=== PATIENT | male | born 1940 | race Caucasian/White ===

== ENCOUNTER 2019-06-29 15:30 | Inpatient (IN) ==
[2019-06-29] MEDS ORDERED: ALBUTEROL/IPRATROPIUM 3 ML NEB RESP TX STA (16:07)
[2019-06-29 16:25] LABS: Basophils % 0.2 % (0.0-0.8); Eosinophils % 0.1 % (0.00-10.9); Hematocrit 38.4 VOL% (42.0-52.0); Hemoglobin 13.2 GM/DL (14.0-18.0); Immature Granulocytes % 0.9 %; Immature Granulocytes Absolute 0.18 #; Lymphocytes # 0.3 10*3/uL (1.4-4.0); Lymphocytes % 1.5 % (21.2-54.2); Mean Corpuscular HGB Conc 34.4 GM/DL (32-36); Mean Corpuscular Volume 101.1 FL (87-102); Mean Platelet Volume 8.5 FL (9.6-12.0); Monocytes % 6.1 % (1.7-12.7); Neutrophils % 91.2 % (38.7-73.9); Platelet Count 173 T/CUMM (130-400); Red Cell Distribution Width 12.7 % (9.3-17.3); White Blood Count 19.7 T/CUMM (4-12)
[2019-06-29 17:04] LABS: Albumin 3.8 G/DL (3.4-5.0); Bilirubin,Total 1.1 MG/DL (0.2-1.0); Calcium 9.1 MG/DL (8.5-10.1); Osmolality,Calculated 256.5 MOS/KG (273-304)
[2019-06-29] MEDS ORDERED: SODIUM CHLORIDE 0.9% 1,000 ML IV STA (17:17)
[2019-06-29 17:21] LABS: Band Neutrophils 3 % (0-10); Lymphocytes 2 % (20-55); Segmented Neutrophils 89 % (50-85); Total Cells Counted 100
[2019-06-29 17:22] LABS: Macrocytosis Slight; Platelet Estimate Adequate
[2019-06-29] MEDS ORDERED: ACETAMINOPHEN 325 MG TABLET PO PRN (19:28)
[2019-06-29] MEDS ORDERED: ONDANSETRON 4 MG/2 ML VIAL IV PRN (19:28)
[2019-06-29] MEDS ORDERED: DEXTROSE 50% 25 GM/50 ML VIAL IV PRN (19:28)
[2019-06-29] MEDS ORDERED: GLUCAGON 1 MG VIAL IM PRN (19:28)
[2019-06-29] MEDS: APIXABAN 2.5 MG TABLET PO SCH (22:46)
[2019-06-29] MEDS: MONTELUKAST 10 MG TABLET PO SCH (22:46)
[2019-06-29] MEDS: methylPREDNISolone SOD SUC 40 MG/1 ML VIAL IV SCH (22:47)
[2019-06-29] MEDS: SODIUM CHLORIDE 0.9% 1,000 ML IV SCH (22:47)
[2019-06-29] MEDS: LEVOFLOXACIN INJ 750 MG in PREMIX 1 EACH IV SCH (22:48)
[2019-06-29] MEDS: FLUTICASONE/SALMETEROL 500-50 DISKUS 14 DOSE INH SCH (22:54)
[2019-06-29] MEDS: INSULIN LISPRO 100 UNIT/ML SUBCUT SCH (23:27)
[2019-06-29] MEDS: LORazepam 2 MG/1 ML VIAL IV PRN (23:28)
[2019-06-30] MEDS: ALBUTEROL/IPRATROPIUM 3 ML NEB RESP TX SCH ×3 (00:23→20:29)
[2019-06-30] MEDS: LORazepam 2 MG/1 ML VIAL IV PRN (04:01)
[2019-06-30 04:55] LABS: Basophils % 0.1 % (0.0-0.8); Hematocrit 32.3 VOL% (42.0-52.0); Hemoglobin 11.6 GM/DL (14.0-18.0); Immature Granulocytes % 0.7 %; Immature Granulocytes Absolute 0.08 #; Lymphocytes # 0.1 10*3/uL (1.4-4.0); Lymphocytes % 1.2 % (21.2-54.2); Mean Corpuscular HGB Conc 35.9 GM/DL (32-36); Mean Corpuscular Volume 97.9 FL (87-102); Mean Platelet Volume 8.8 FL (9.6-12.0); Monocytes % 3.5 % (1.7-12.7); Neutrophils % 94.5 % (38.7-73.9); Platelet Count 147 T/CUMM (130-400); Red Cell Distribution Width 12.6 % (9.3-17.3); White Blood Count 10.7 T/CUMM (4-12)
[2019-06-30 05:18] LABS: Calcium 8.7 MG/DL (8.5-10.1); Osmolality,Calculated 265.7 MOS/KG (273-304)
[2019-06-30 05:22] LABS: Hypochromasia 1+; Lymphocytes 4 % (20-55); Platelet Estimate Normal; Segmented Neutrophils 94 % (50-85); Total Cells Counted 100
[2019-06-30 05:34] LABS: Folate > 24.0 NG/ML (5.4-24.0); Vitamin B12 1226 PG/ML (211-911)
[2019-06-30] MEDS: methylPREDNISolone SOD SUC 40 MG/1 ML VIAL IV SCH ×3 (06:48→20:10)
[2019-06-30] MEDS: SODIUM CHLORIDE 0.9% 1,000 ML IV SCH ×2 (07:35→15:42)
[2019-06-30] MEDS ORDERED: THIAMINE 200 MG/2 ML VIAL IV SCH (09:00)
[2019-06-30] MEDS: APIXABAN 2.5 MG TABLET PO SCH ×2 (09:14→20:08)
[2019-06-30] MEDS: FOLIC ACID 1 MG TABLET PO SCH (09:14)
[2019-06-30] MEDS: MULTIVITAMIN (CENTRUM) TABLET PO SCH (09:14)
[2019-06-30] MEDS: TAMSULOSIN 0.4 MG CAPSULE PO SCH (09:14)
[2019-06-30] MEDS: DILTIAZEM CD 120 MG CAPSULE PO SCH (09:14)
[2019-06-30] MEDS: FUROSEMIDE 40 MG TABLET PO SCH (09:15)
[2019-06-30] MEDS: PANTOPRAZOLE 40 MG TABLET PO SCH (09:15)
[2019-06-30] MEDS: INSULIN LISPRO 100 UNIT/ML SUBCUT SCH ×4 (09:16→20:09)
[2019-06-30] MEDS: NICOTINE 21 MG/24 HR PATCH TRANSDERM SCH (09:20)
[2019-06-30] MEDS ORDERED: SODIUM PHOSPHATE ENEMA 133 ML BOTTLE RECTAL ONE (09:53)
[2019-06-30] MEDS ORDERED: MAGNESIUM SULF RIDER 4 GM in PREMIX 1 EACH IV PRN (09:53)
[2019-06-30] MEDS ORDERED: MAGNESIUM SULF RIDER 2 GM in PREMIX 1 EACH IV PRN (09:53)
[2019-06-30] MEDS ORDERED: ALBUTEROL/IPRATROPIUM 3 ML NEB RESP TX PRN (09:55)
[2019-06-30] MEDS: FLUTICASONE/SALMETEROL 500-50 DISKUS 14 DOSE INH SCH ×2 (10:16→20:11)
[2019-06-30 10:49] LABS: Apearance,Urine CLEAR (Clear); Bilirubin,Urine Negative (Negative); Blood, Urine Moderate mg/dL (Negative); Glucose,Urine (UA) 50 mg/dL (Negative); Ketones,Urine 5 mg/dL (Negative); Nitrite,Urine Negative (Negative); Protein,Urine Negative; RBC,Urine 10 /HPF (0-4); Squamous Epithelial Cell,Urine Occasional /HPF (0-10); Urine Color Yellow (Yellow); Urine Specific Gravity 1.019 (1.001-1.035); WBC,Urine <1 /HPF (0-6)
[2019-06-30] MEDS ORDERED: MAGNESIUM CITRATE 300 ML BOTTLE PO ONE (12:02)
[2019-06-30] MEDS: DOCUSATE/SENNA 50-8.6 MG TABLET PO SCH ×2 (12:16→20:08)
[2019-06-30] MEDS ORDERED: DIGOXIN 0.25 MG TABLET PO SCH (13:00)
[2019-06-30] MEDS: LEVOFLOXACIN INJ 750 MG in PREMIX 1 EACH IV SCH (20:08)
[2019-06-30] MEDS: MONTELUKAST 10 MG TABLET PO SCH (20:09)
[2019-06-30] MEDS: LACTULOSE 20 GM/30 ML UDCUP PO SCH (20:13)
[2019-07-01] MEDS: LORazepam 2 MG/1 ML VIAL IV PRN (02:06)
[2019-07-01 05:33] LABS: Basophils % 0.2 % (0.0-0.8); Eosinophils % 0.2 % (0.00-10.9); Immature Granulocytes % 0.7 %; Immature Granulocytes Absolute 0.08 #; Lymphocytes # 0.8 10*3/uL (1.4-4.0); Lymphocytes % 7.1 % (21.2-54.2); Mean Corpuscular HGB Conc 34.4 GM/DL (32-36); Mean Corpuscular Volume 99.7 FL (87-102); Mean Platelet Volume 9.5 FL (9.6-12.0); Monocytes % 9.6 % (1.7-12.7); Neutrophils % 82.2 % (38.7-73.9); Platelet Count 149 T/CUMM (130-400); Red Blood Count 3.21 MC/CUMM (3.8-5.5); Red Cell Distribution Width 12.6 % (9.3-17.3); White Blood Count 11.2 T/CUMM (4-12)
[2019-07-01] MEDS: methylPREDNISolone SOD SUC 40 MG/1 ML VIAL IV SCH (05:55)
[2019-07-01 06:04] LABS: Albumin 2.8 G/DL (3.4-5.0); Bilirubin,Total 1.1 MG/DL (0.2-1.0); Calcium 8.4 MG/DL (8.5-10.1); Osmolality,Calculated 271.2 MOS/KG (273-304); Total Protein 5.5 G/DL (6.4-8.3)
[2019-07-01] MEDS: ALBUTEROL/IPRATROPIUM 3 ML NEB RESP TX SCH (08:10)
[2019-07-01] MEDS ORDERED: THIAMINE 100 MG TABLET PO SCH (09:00)
[2019-07-01] MEDS ORDERED: INFLUENZA VIRUS VACCINE 0.5 ML SYRINGE IM ONE (11:03)
[2019-07-01] MEDS: FOLIC ACID 1 MG TABLET PO SCH (11:49)
[2019-07-01] MEDS: MULTIVITAMIN (CENTRUM) TABLET PO SCH (11:49)
[2019-07-01] MEDS: DOCUSATE/SENNA 50-8.6 MG TABLET PO SCH (11:49)
[2019-07-01] MEDS: FUROSEMIDE 40 MG TABLET PO SCH (11:50)
[2019-07-01] MEDS: DILTIAZEM CD 120 MG CAPSULE PO SCH (11:50)
[2019-07-01] MEDS: APIXABAN 2.5 MG TABLET PO SCH (11:50)
[2019-07-01] MEDS: TAMSULOSIN 0.4 MG CAPSULE PO SCH (11:50)
[2019-07-01] MEDS: NICOTINE 21 MG/24 HR PATCH TRANSDERM SCH (11:51)
[2019-07-01] MEDS: LACTULOSE 20 GM/30 ML UDCUP PO SCH (11:51)
[2019-07-01] MEDS: INSULIN LISPRO 100 UNIT/ML SUBCUT SCH (11:52)
[2019-07-01] MEDS: FLUTICASONE/SALMETEROL 500-50 DISKUS 14 DOSE INH SCH (11:52)
[2019-07-01] MEDS: PANTOPRAZOLE 40 MG TABLET PO SCH (11:53)
[2019-07-01 11:57] VITALS: BP 113/60
== END 2019-07-01 13:15 | disposition home or self-care (01) | DRG 392 ==
LOC: N.ED 15:30 → N.EDINP 19:28 → N.5E 20:22
PROVIDERS: ADMIT Family Medicine; ATTEND Family Medicine

== ENCOUNTER 2019-09-30 10:20 | Inpatient (IN) ==
[2019-09-30] MEDS ORDERED: ALUMINUM/MAGNES/SIMETH MAX STR 30 ML UDCUP PO PRN (10:26)
[2019-09-30] MEDS ORDERED: diphenhydrAMINE CAP 25 MG CAPSULE PO PRN (10:26)
[2019-09-30] MEDS ORDERED: DOCUSATE SODIUM 100 MG CAPSULE PO PRN (10:26)
[2019-09-30] MEDS ORDERED: ZALEPLON 5 MG CAPSULE PO PRN (10:26)
[2019-09-30] MEDS ORDERED: ONDANSETRON 4 MG/2 ML VIAL IV PRN (10:26)
[2019-09-30] MEDS ORDERED: ACETAMINOPHEN 325 MG TABLET PO PRN (10:26)
[2019-09-30 14:41] LABS: Basophils % 0.2 % (0.0-0.8); Hematocrit 36.8 VOL% (42.0-52.0); Immature Granulocytes % 0.8 %; Immature Granulocytes Absolute 0.09 #; Lymphocytes # 0.4 10*3/uL (1.4-4.0); Lymphocytes % 3.1 % (21.2-54.2); Mean Corpuscular HGB Conc 32.6 GM/DL (32-36); Mean Corpuscular Volume 97.1 FL (87-102); Mean Platelet Volume 9.2 FL (9.6-12.0); Monocytes % 8.2 % (1.7-12.7); Neutrophils % 87.7 % (38.7-73.9); Platelet Count 171 T/CUMM (130-400); Red Blood Count 3.79 MC/CUMM (3.8-5.5); Red Cell Distribution Width 14.4 % (9.3-17.3); White Blood Count 11.6 T/CUMM (4-12)
[2019-09-30 15:05] LABS: Calcium 8.8 MG/DL (8.5-10.1); Osmolality,Calculated 273.5 MOS/KG (273-304)
[2019-09-30 15:17] LABS: Lymphocytes 2 % (20-55); Ovalocytes Few; Platelet Estimate Adequate; Segmented Neutrophils 90 % (50-85); Total Cells Counted 100
[2019-09-30 15:18] LABS: Anisocytosis Slight
[2019-09-30] MEDS ORDERED: MAGNESIUM SULF RIDER 2 GM in PREMIX 1 EACH IV ONE (15:46)
[2019-09-30] MEDS: ceFAZolin 1,000 MG in SYRINGE 1 EACH IV SCH ×2 (16:38→22:22)
[2019-09-30 19:35] LABS: Apearance,Urine CLEAR (Clear); Bilirubin,Urine Negative (Negative); Blood, Urine Small mg/dL (Negative); Glucose,Urine (UA) >=500 mg/dL (Negative); Hyaline Casts,Urine 1 /LPF (0-3); Ketones,Urine Negative (Negative); Mucus,Urine Occasional /LPF (Occasional); Nitrite,Urine Negative (Negative); Protein,Urine 30 MG/DL; RBC,Urine 25 /HPF (0-4); Squamous Epithelial Cell,Urine Occasional /HPF (0-10); Urine Color Yellow (Yellow); Urine Urobilinogen < 2.0 EU/DL (0.2-1.0); WBC,Urine 1 /HPF (0-6)
[2019-09-30] MEDS: ALBUTEROL/IPRATROPIUM 3 ML NEB RESP TX SCH (19:39)
[2019-09-30] MEDS: POTASSIUM CHLORIDE 10 MEQ TABLET PO SCH (20:34)
[2019-09-30] MEDS: predniSONE 10 MG TABLET PO SCH (20:34)
[2019-09-30] MEDS: MONTELUKAST 10 MG TABLET PO SCH (20:35)
[2019-09-30] MEDS: FLUTICASONE PROPION SALMETEROL INH SCH (20:38)
[2019-10-01] MEDS: ALBUTEROL/IPRATROPIUM 3 ML NEB RESP TX SCH ×4 (00:17→20:01)
[2019-10-01] MEDS: ceFAZolin 1,000 MG in SYRINGE 1 EACH IV SCH ×4 (04:13→21:19)
[2019-10-01 04:49] LABS: Basophils % 0.1 % (0.0-0.8); Hemoglobin 10.6 GM/DL (14.0-18.0); Immature Granulocytes % 0.6 %; Immature Granulocytes Absolute 0.05 #; Lymphocytes # 0.4 10*3/uL (1.4-4.0); Lymphocytes % 4.6 % (21.2-54.2); Mean Corpuscular HGB Conc 32.1 GM/DL (32-36); Mean Corpuscular Volume 97.3 FL (87-102); Mean Platelet Volume 9.3 FL (9.6-12.0); Monocytes % 9.7 % (1.7-12.7); Platelet Count 157 T/CUMM (130-400); Red Blood Count 3.39 MC/CUMM (3.8-5.5); Red Cell Distribution Width 14.3 % (9.3-17.3); White Blood Count 8.8 T/CUMM (4-12)
[2019-10-01 05:31] LABS: Calcium 8.5 MG/DL (8.5-10.1); Osmolality,Calculated 271.2 MOS/KG (273-304); Risk Ratio 1.27; VLDL CHOLESTEROL 6.4 MG/DL
[2019-10-01 05:40] LABS: Anisocytosis 1+; Eosinophils 2 % (0-10); Lymphocytes 8 % (20-55); Segmented Neutrophils 82 % (50-85); Total Cells Counted 100
[2019-10-01 05:41] LABS: Platelet Estimate Adequate
[2019-10-01] MEDS ORDERED: LIDOCAINE 1% 20 ML VIAL ONE (06:17)
[2019-10-01] MEDS ORDERED: BUPIVACAINE MPF 0.25% 30 ML VIAL ONE (06:17)
[2019-10-01] MEDS ORDERED: LIDOCAINE 2% 5 ML VIAL ONE (09:20)
[2019-10-01] MEDS ORDERED: propofoL 200 MG/20 ML VIAL IV ONE (09:20)
[2019-10-01] MEDS ORDERED: PHENYLEPHRINE 1 MG/10 ML SYRINGE IV ONE (09:21)
[2019-10-01] MEDS ORDERED: MIDAZOLAM 2 MG/2 ML VIAL ONE (09:21)
[2019-10-01] MEDS: FUROSEMIDE 40 MG TABLET PO SCH (11:10)
[2019-10-01] MEDS: MULTIVITAMIN (CENTRUM) TABLET PO SCH (11:10)
[2019-10-01] MEDS: predniSONE 10 MG TABLET PO SCH ×2 (11:10→21:18)
[2019-10-01] MEDS: PANTOPRAZOLE 40 MG TABLET PO SCH (11:10)
[2019-10-01] MEDS: MAGNESIUM CHLORIDE 64 MG TABLET PO SCH (11:10)
[2019-10-01] MEDS: TAMSULOSIN 0.4 MG CAPSULE PO SCH (11:10)
[2019-10-01] MEDS: POTASSIUM CHLORIDE 10 MEQ TABLET PO SCH ×2 (11:10→21:18)
[2019-10-01] MEDS: DILTIAZEM CD 120 MG CAPSULE PO SCH (11:11)
[2019-10-01] MEDS: SPIRONOLACTONE 25 MG TABLET PO SCH (11:11)
[2019-10-01] MEDS: CHOLECALCIFEROL 400 UNIT TABLET PO SCH (11:11)
[2019-10-01] MEDS: FLUTICASONE PROPION SALMETEROL INH SCH ×2 (11:12→21:19)
[2019-10-01] MEDS: MONTELUKAST 10 MG TABLET PO SCH (21:18)
[2019-10-02] MEDS: ALBUTEROL/IPRATROPIUM 3 ML NEB RESP TX SCH ×4 (00:57→19:02)
[2019-10-02] MEDS: ceFAZolin 1,000 MG in SYRINGE 1 EACH IV SCH ×4 (04:26→23:06)
[2019-10-02 05:06] LABS: Basophils % 0.1 % (0.0-0.8); Eosinophils % 0.1 % (0.00-10.9); Hematocrit 32.1 VOL% (42.0-52.0); Hemoglobin 10.2 GM/DL (14.0-18.0); Immature Granulocytes % 0.5 %; Immature Granulocytes Absolute 0.04 #; Lymphocytes # 0.4 10*3/uL (1.4-4.0); Mean Corpuscular HGB Conc 31.8 GM/DL (32-36); Mean Corpuscular Volume 98.8 FL (87-102); Mean Platelet Volume 8.9 FL (9.6-12.0); Monocytes % 10.7 % (1.7-12.7); Neutrophils % 84.6 % (38.7-73.9); Platelet Count 137 T/CUMM (130-400); Red Blood Count 3.25 MC/CUMM (3.8-5.5); White Blood Count 8.7 T/CUMM (4-12)
[2019-10-02 05:37] LABS: Calcium 8.4 MG/DL (8.5-10.1); Osmolality,Calculated 273.2 MOS/KG (273-304)
[2019-10-02 06:06] LABS: Band Neutrophils 3 % (0-10); Lymphocytes 4 % (20-55); Segmented Neutrophils 84 % (50-85); Total Cells Counted 100
[2019-10-02 06:07] LABS: Anisocytosis 1+; Platelet Estimate Normal
[2019-10-02] MEDS: PANTOPRAZOLE 40 MG TABLET PO SCH (10:12)
[2019-10-02] MEDS: CHOLECALCIFEROL 400 UNIT TABLET PO SCH (10:13)
[2019-10-02] MEDS: POTASSIUM CHLORIDE 10 MEQ TABLET PO SCH ×2 (10:13→20:33)
[2019-10-02] MEDS: predniSONE 10 MG TABLET PO SCH ×2 (10:13→20:33)
[2019-10-02] MEDS: TAMSULOSIN 0.4 MG CAPSULE PO SCH (10:13)
[2019-10-02] MEDS: MULTIVITAMIN (CENTRUM) TABLET PO SCH (10:13)
[2019-10-02] MEDS: DILTIAZEM CD 120 MG CAPSULE PO SCH (10:14)
[2019-10-02] MEDS: SPIRONOLACTONE 25 MG TABLET PO SCH (10:14)
[2019-10-02] MEDS: FUROSEMIDE 40 MG TABLET PO SCH (10:15)
[2019-10-02] MEDS: MAGNESIUM CHLORIDE 64 MG TABLET PO SCH (10:15)
[2019-10-02] MEDS: FLUTICASONE PROPION SALMETEROL INH SCH ×2 (10:16→20:33)
[2019-10-02] MEDS ORDERED: diphenhydrAMINE CAP 25 MG CAPSULE PO ONE (14:25)
[2019-10-02] MEDS ORDERED: DIAZEPAM 5 MG TABLET PO ONE (14:25)
[2019-10-02] MEDS: MONTELUKAST 10 MG TABLET PO SCH (20:33)
[2019-10-03] MEDS: ALBUTEROL/IPRATROPIUM 3 ML NEB RESP TX SCH ×4 (00:45→19:47)
[2019-10-03] MEDS: ceFAZolin 1,000 MG in SYRINGE 1 EACH IV SCH ×4 (04:12→23:27)
[2019-10-03 05:07] LABS: Basophils % 0.1 % (0.0-0.8); Eosinophils % 0.4 % (0.00-10.9); Hemoglobin 10.4 GM/DL (14.0-18.0); Immature Granulocytes % 0.8 %; Immature Granulocytes Absolute 0.06 #; Lymphocytes # 0.3 10*3/uL (1.4-4.0); Lymphocytes % 4.2 % (21.2-54.2); Mean Corpuscular HGB Conc 32.5 GM/DL (32-36); Mean Corpuscular Volume 96.7 FL (87-102); Mean Platelet Volume 9.4 FL (9.6-12.0); Monocytes % 10.5 % (1.7-12.7); Platelet Count 146 T/CUMM (130-400); Red Blood Count 3.31 MC/CUMM (3.8-5.5); White Blood Count 7.9 T/CUMM (4-12)
[2019-10-03 05:28] LABS: Calcium 8.8 MG/DL (8.5-10.1); Lymphocytes 7 % (20-55); Osmolality,Calculated 268.5 MOS/KG (273-304); Segmented Neutrophils 84 % (50-85); Total Cells Counted 100
[2019-10-03 05:29] LABS: Hypochromasia 1+; Ovalocytes Slight; Platelet Estimate Normal
[2019-10-03] MEDS ORDERED: diphenhydrAMINE CAP 25 MG CAPSULE PO ONE (06:00)
[2019-10-03] MEDS ORDERED: DIAZEPAM 5 MG TABLET PO ONE (06:00)
[2019-10-03] MEDS ORDERED: LIDOCAINE 1%/EPI INJ 20 ML VIAL ONE (10:25)
[2019-10-03] MEDS ORDERED: ceFAZolin 1,000 MG VIAL ONE (10:25)
[2019-10-03] MEDS ORDERED: HYDROmorphone 2 MG/1 ML VIAL ONE (10:30)
[2019-10-03] MEDS ORDERED: MIDAZOLAM 2 MG/2 ML VIAL ONE (10:30)
[2019-10-03] MEDS ORDERED: TISSUE ADHESIVE 1 EACH APPLICATOR TOP ONE (11:06)
[2019-10-03] MEDS: POTASSIUM CHLORIDE 10 MEQ TABLET PO SCH ×2 (13:07→22:05)
[2019-10-03] MEDS: predniSONE 10 MG TABLET PO SCH ×2 (13:08→22:05)
[2019-10-03] MEDS: TAMSULOSIN 0.4 MG CAPSULE PO SCH (15:50)
[2019-10-03] MEDS: MULTIVITAMIN (CENTRUM) TABLET PO SCH (15:50)
[2019-10-03] MEDS: DILTIAZEM CD 120 MG CAPSULE PO SCH (15:50)
[2019-10-03] MEDS: MAGNESIUM CHLORIDE 64 MG TABLET PO SCH (15:50)
[2019-10-03] MEDS: CHOLECALCIFEROL 400 UNIT TABLET PO SCH (15:50)
[2019-10-03] MEDS: SPIRONOLACTONE 25 MG TABLET PO SCH (15:50)
[2019-10-03] MEDS: PANTOPRAZOLE 40 MG TABLET PO SCH (15:50)
[2019-10-03] MEDS: FLUTICASONE PROPION SALMETEROL INH SCH ×2 (15:51→22:05)
[2019-10-03] MEDS: FUROSEMIDE 40 MG TABLET PO SCH (18:25)
[2019-10-03] MEDS: MONTELUKAST 10 MG TABLET PO SCH (22:05)
[2019-10-04] MEDS: ALBUTEROL/IPRATROPIUM 3 ML NEB RESP TX SCH ×4 (00:05→19:26)
[2019-10-04 05:06] LABS: Basophils % 0.1 % (0.0-0.8); Eosinophils % 0.2 % (0.00-10.9); Hematocrit 37.4 VOL% (42.0-52.0); Hemoglobin 11.8 GM/DL (14.0-18.0); Immature Granulocytes % 0.6 %; Immature Granulocytes Absolute 0.06 #; Lymphocytes # 0.3 10*3/uL (1.4-4.0); Lymphocytes % 3.2 % (21.2-54.2); Mean Corpuscular HGB Conc 31.6 GM/DL (32-36); Mean Corpuscular Volume 98.4 FL (87-102); Mean Platelet Volume 9.4 FL (9.6-12.0); Monocytes % 6.3 % (1.7-12.7); Neutrophils % 89.6 % (38.7-73.9); Platelet Count 166 T/CUMM (130-400); White Blood Count 10.7 T/CUMM (4-12)
[2019-10-04 05:29] LABS: Band Neutrophils 2 % (0-10); Hypochromasia 1+; Lymphocytes 1 % (20-55); Ovalocytes Slight; Platelet Estimate Adequate; Segmented Neutrophils 91 % (50-85); Total Cells Counted 100
[2019-10-04] MEDS: ceFAZolin 1,000 MG in SYRINGE 1 EACH IV SCH ×4 (05:37→20:59)
[2019-10-04 05:44] LABS: Calcium 9.1 MG/DL (8.5-10.1); Osmolality,Calculated 264.7 MOS/KG (273-304)
[2019-10-04] MEDS: PANTOPRAZOLE 40 MG TABLET PO SCH (10:17)
[2019-10-04] MEDS: FLUTICASONE PROPION SALMETEROL INH SCH ×2 (10:20→20:55)
[2019-10-04] MEDS: predniSONE 10 MG TABLET PO SCH ×2 (11:48→20:51)
[2019-10-04] MEDS: POTASSIUM CHLORIDE 10 MEQ TABLET PO SCH ×2 (11:48→20:51)
[2019-10-04] MEDS ORDERED: LACTATED RINGERS 1,000 ML IV SCH (13:30)
[2019-10-04] MEDS: TAMSULOSIN 0.4 MG CAPSULE PO SCH (16:45)
[2019-10-04] MEDS: MAGNESIUM CHLORIDE 64 MG TABLET PO SCH (16:46)
[2019-10-04] MEDS: CHOLECALCIFEROL 400 UNIT TABLET PO SCH (16:46)
[2019-10-04] MEDS: DIGOXIN 0.125 MG TABLET PO SCH (16:46)
[2019-10-04] MEDS: MULTIVITAMIN (CENTRUM) TABLET PO SCH (16:46)
[2019-10-04] MEDS: SPIRONOLACTONE 25 MG TABLET PO SCH (16:46)
[2019-10-04] MEDS: DILTIAZEM CD 180 MG CAPSULE PO SCH (16:46)
[2019-10-04] MEDS: FUROSEMIDE 40 MG TABLET PO SCH (16:47)
[2019-10-04] MEDS: MONTELUKAST 10 MG TABLET PO SCH (20:51)
[2019-10-05] MEDS: ALBUTEROL/IPRATROPIUM 3 ML NEB RESP TX SCH ×3 (00:59→13:50)
[2019-10-05] MEDS: ceFAZolin 1,000 MG in SYRINGE 1 EACH IV SCH ×2 (03:41→09:20)
[2019-10-05 04:43] LABS: Basophils % 0.1 % (0.0-0.8); Eosinophils % 0.3 % (0.00-10.9); Hematocrit 32.3 VOL% (42.0-52.0); Hemoglobin 10.4 GM/DL (14.0-18.0); Immature Granulocytes % 0.6 %; Immature Granulocytes Absolute 0.05 #; Lymphocytes # 0.3 10*3/uL (1.4-4.0); Lymphocytes % 3.4 % (21.2-54.2); Mean Corpuscular HGB Conc 32.2 GM/DL (32-36); Mean Corpuscular Volume 97.6 FL (87-102); Mean Platelet Volume 8.8 FL (9.6-12.0); Monocytes % 8.9 % (1.7-12.7); Neutrophils % 86.7 % (38.7-73.9); Platelet Count 151 T/CUMM (130-400); Red Blood Count 3.31 MC/CUMM (3.8-5.5); Red Cell Distribution Width 13.9 % (9.3-17.3); White Blood Count 7.7 T/CUMM (4-12)
[2019-10-05 05:07] LABS: Calcium 8.5 MG/DL (8.5-10.1); Osmolality,Calculated 271.2 MOS/KG (273-304)
[2019-10-05 05:19] LABS: Eosinophils 1 % (0-10); Hypochromasia Slight; Lymphocytes 2 % (20-55); Platelet Estimate Adequate; Segmented Neutrophils 91 % (50-85); Total Cells Counted 100
[2019-10-05] MEDS: FUROSEMIDE 40 MG TABLET PO SCH (08:39)
[2019-10-05] MEDS: CHOLECALCIFEROL 400 UNIT TABLET PO SCH (08:39)
[2019-10-05] MEDS: MULTIVITAMIN (CENTRUM) TABLET PO SCH (08:40)
[2019-10-05] MEDS: DILTIAZEM CD 180 MG CAPSULE PO SCH (08:40)
[2019-10-05] MEDS: TAMSULOSIN 0.4 MG CAPSULE PO SCH (08:41)
[2019-10-05] MEDS: POTASSIUM CHLORIDE 10 MEQ TABLET PO SCH (08:41)
[2019-10-05] MEDS: SPIRONOLACTONE 25 MG TABLET PO SCH (08:42)
[2019-10-05] MEDS: PANTOPRAZOLE 40 MG TABLET PO SCH (08:42)
[2019-10-05] MEDS: predniSONE 10 MG TABLET PO SCH (08:42)
[2019-10-05] MEDS: MAGNESIUM CHLORIDE 64 MG TABLET PO SCH (08:42)
[2019-10-05] MEDS: FLUTICASONE PROPION SALMETEROL INH SCH (08:43)
[2019-10-05 13:36] VITALS: BP 112/64
[2019-10-05] MEDS: DIGOXIN 0.125 MG TABLET PO SCH (14:43)
== END 2019-10-05 14:42 | disposition home health service (06) | DRG 243 ==
LOC: N.TELEN 10:32 → INTOOBSV 13:31
PROVIDERS: ADMIT Internal Medicine Cardiovascular Disease; ATTEND Internal Medicine Cardiovascular Disease